=== PATIENT | female | born 1945 | race Two or more races ===

== ENCOUNTER 2022-06-01 17:38 | Emergency (ER) | payer MEDICAID, MEDICARE, OTHER ==
[~2022-06-01] VITALS: Ht 167.6 cm; Wt 63.5 kg
[~2022-06-01 17:38] MED LIST: ASPI81CH43; INSUPOW; METF-370; TRIA25CA
[2022-06-01 19:18] LABS: Basophils # (auto) 0 10 ^3/uL (0-0.2); Basophils % (auto) 0.5 % (0.0-2.0); Eosinophils # (auto) 0 10 ^3/uL (0-0.8); Monocytes # (auto) 0.4 10 ^3/uL (0-1.3); Monocytes % (auto) 8.4 % (0.0-12.0); Neutrophils # (auto) 3.6 10 ^3/uL (1.6-8.6); Neutrophils % (auto) 71.6 % (37.0-80.0)
[2022-06-01] MEDS ORDERED: DOCU100T15 PO (19:19)
[2022-06-01 19:20] LABS: Eosinophils % (auto) 0.6 % (0.0-7.0); Hematocrit 39.3 % (36.0-46.0); Hemoglobin 12.7 g/dL (12.2-16.2); Lymphocytes % (auto) 18.9 % (10.0-50.0); Mean Corpuscular Hemoglobin 26.2 pg (28.0-32.0); Mean Corpuscular Hgb Conc. 32.4 g/dL (32.0-36.0); Red Blood Cells 4.85 10^6/uL (4.0-5.20); Red Cell Distribution Width 15.9 % (11.8-14.3)
[2022-06-01] MEDS ORDERED: FLEET ENEMA(ADULT) 135 ML PR ONE (19:30)
[2022-06-01 19:36] LABS: Albumin 4.4 g/dL (3.4-5.0); BUN/Creatinine Ratio 17.9; Calcium 9.7 mg/dL (8.5-10.1); Potassium 4.2 mmol/L (3.5-5.1)
[2022-06-01 19:39] LABS: Bilirubin, Total 0.5 mg/dL (0.2-1.0); Total Protein 7.9 g/dL (6.4-8.2)
[2022-06-01 20:58] VITALS: BP 168/80
== END 2022-06-01 21:31 | disposition home or self-care (01) ==
LOC: ER 17:38
DX: K59.00 Constipation, unspecified (principal); I10 Essential (primary) hypertension; E11.9 Type 2 diabetes mellitus without complications; Z86.73 Personal history of transient ischemic attack (TIA), and cerebral infarction without residual deficits
CPT/HCPCS: 36415; 74018; 80053; 84484; 85025